=== PATIENT | male | born 1940 | race Caucasian/White ===

== ENCOUNTER 2018-12-26 09:28 | Emergency (ER) | payer MEDICARE, OTHER, SELFPAY ==
[2018-12-26 09:34] VITALS: BP 141/67; PULSE 54; RESP 16; TEMP 36.7; O2SAT 97; BMI 27.6
[2018-12-26] MEDS: TRIMETH/SULFA 160/800 (DS) TABLET 1 TAB PO (11:51)
[2018-12-26] MEDS: LIDOCAINE 2% INJ MDV 3 ML SUBCUT (11:51)
--- NOTE | 2018-12-26 12:05 | ED_ITS ---
HPI - Skin/Abscess/Foreign Bdy General Chief complaint: Skin/Abscess/Foreign Body Stated complaint: Fatty tissue is leaking on his back. Time Seen by Provider: 12/26/18 10:25 Source: patient Mode of arrival: ambulatory Limitations: no limitations History of Present Illness HPI narrative: Patient comes emergency department complaining of swelling and pain on his back in the area of a cyst/tumor. Patient states that he has had a number of these and has had to have I and D's 4 times in different areas of his back. He states usually happens toward the end of summer when it has been hot and he has been sweating a lot. Patient states that he is visiting here with his from [place]. They are staying with their son on [facility], and have been here for a couple of days. He states that has been hard for him to sleep or to be able in to enjoy other time, because of the pain and increasing swelling and tightness over his back. No fevers or chills. He states the skin is weeping a little bit but otherwise, no drainage. Related Data Home Medications Medication Instructions Recorded Confirmed triamterene-hydrochlorothiazid 1 tab PO DAILY 12/26/18 Previous Rx's Medication Instructions Recorded hydrocodone-acetaminophen 1 tab PO Q4-6H PRN #14 tab 12/26/18 sulfamethoxazole-trimethoprim 1 tab PO BID #14 tab 12/26/18 [Bactrim DS] Allergies Allergy/AdvReac Type Severity Reaction Status Date / Time No Known Drug Allergies Allergy Verified 12/26/18 09:34 Review of Systems Constitutional Constitutional: Denies chills, Denies fatigue, Denies fever(s), Denies frequent falls, Denies lethargy and Denies weakness Eyes Eyes: Denies change in vision, Denies eye discharge, Denies irritation and Denie s loss of vision ENT Ears, Nose, Mouth, and Throat: Denies change in voice, Denies dizziness, Denies neck pain, Denies sore throat and Denies throat swelling Cardiovascular Cardiovascular: Denies chest pain, Denies irregular heart rhythm, Denies lightheadedness, Denies palpitations, Denies dyspnea, Denies dyspnea on exertion and Denies orthopnea Respiratory Respiratory: Denies cough, Denies dyspnea, Denies dyspnea on exertion and Denies wheezing Gastrointestinal Gastrointestinal: Denies abdominal pain, Denies change in bowel habits, Denies diarrhea, Denies nausea and Denies vomiting Genitourinary Genitourinary: Denies hematuria, Denies flank pain, Denies urinary incontinence and Denies urinary urgency Musculoskeletal Musculoskeletal: Denies back pain, Denies muscle weakness, Denies neck pain, Denies numbness and Denies tingling Integumentary/Breasts Skin/Breast: Denies pruritus, Denies erythema, Denies rash and Denies wounds Comments: Skin lesion Neurologic Neurologic: Denies behavioral changes, Denies confusion, Denies dizziness, D enies frequent falls, Denies loss of vision, Denies numbness, Denies tingling and Denies weakness Psychiatric Psychiatric: Denies anxiety, Denies behavioral changes, Denies confusion, Denies depression, Denies homicidal ideation and Denies suicidal ideation Endocrine Endocrine: Denies fatigue, Denies flushing and Denies palpitations Hematologic/Lymphatic Hematologic/Lymphatic: Denies easy bruising Allergic/Immunologic Allergic/Immunologic: Denies urticaria, Denies throat swelling and Denies wheezing [facility] Medical History Sebaceous cyst (Acute) Surgical History No pertinent past surgical history (Acute) Social History Smoking Status: Never smoker Social History Smoking Status: Never smoker Exam Initial Vital Signs Initial Vital Signs: Vital Signs Temperature 98.0 F 12/26/18 09:34 Pulse Rate 54 L 12/26/18 09:34 Respiratory Rate 16 12/26/18 09:34 Blood Pressure 141/67 H 12/26/18 09:34 Pulse Oximetry 97 12/26/18 09:34 Const General: cooperative and well developed Nutritional Appearance: well nourished Orientation: alert, awake, oriented x3 and not confused [facility] Head: normocephalic and atraumatic Ears: external ears normal Nose: external nose normal and No nasal discharge Face and sinus: face symmetric and No dry mucous membranes Mouth: oral mucosae normal and moist mucous membranes Teeth and gingiva: dentition normal Eyes General: appearance normal, both eyes and all related structures Eyelids: eyelids normal Conjunctivae: conjunctivae normal Sclera: sclerae normal Pupils: PERRL EOM: EOM intact bilaterally Neck Neck: normal visual inspection, trachea midline, No lymphadenopathy, No midline deformity and No JVD Lymphatic: No lymphedema Chest Chest: normal inspection of the chest Resp Effort & Inspection: normal respiratory effort, able to speak in complete sentences, no respiratory distress and no use of accessory muscles Auscultation: clear to auscultation bilaterally, no rales, no rhonchi and no wheezes Cardio Rate: regular rate Rhythm: regular rhythm Heart Sounds: no click, no gallops, no murmurs and no rubs Pulses: normal peripheral pulses GI Inspection: non-distended Palpation: soft, no hepatosplenomegaly, No guarding, No pulsatile mass and No tender Auscultation: normal bowel sounds Back/Spine/Pelvis Back: No CVA tenderness Cervical Spine: cervical ROM normal and No pain with cervical ROM Thoracic/Lumbar Spine: thoracic and lumbar spine normal to inspection Other: Skin lesion see below. Skin General: No jaundice and No petechiae Other: 3 cm diameter abscess with surrounding cellulitis noted on the patient's right lower thoracic area, approximately 4 cm lateral to the spine. Induration and fluctuance is noted. No drainage. Neuro General: alert, oriented x3, gait normal and no focal motor deficits Speech: speech normal Extrem General: full ROM, no clubbing, cyanosis or edema, no pedal edema and no calf tenderness Psych Appearance: well kempt Mental Status: mental status grossly normal Attitude: cooperative Thought Content: normal and suicidality Judgment: judgment good Procedures Abscess I/D Site: back Side (if applicable): right Local Anesthetic: lidocaine 2% Amount of anesthesia used (mL): 3 Technique: incised with #11 blade Amount of fluid expressed (mL): 10 Irrigation: Yes Packing used?: iodoform Course Course Course Narrative: Abscess was I and D, as above. Patient was started on antibiotics in the emergency department, and we have discussed the patient will need to have his wound rechecked and packing changed in 2 days. Patient and are agreeable to this plan. I have given the patient prescription for antibiotics and analgesia, and we discussed the usual indications for return. Wound culture was sent. Orders Ordered: Discontinued Medications Lidocaine HCl (Xylocaine 2%) 3 ml SUBCUT NOW ONE Stop: 12/26/18 11:11 Last Admin: 12/26/18 11:51 Dose: 3 ml Documented by: GLYNN Trimethoprim/Sulfamethoxazole (Bactrim Ds) 1 tab PO NOW ONE Stop: 12/26/18 11:39 Last Admin: 12/26/18 11:51 Dose: 1 tab Documented by: GLYNN Vital Signs Vital signs: Vital Signs - 8 hr 12/26/18 09:34 Temperature 98.0 F Pulse Rate 54 L Respiratory Rate 16 Blood Pressure 141/67 H Pulse Oximetry 97 MDM - Skin/Abscess/Foreign Bdy Medical Records Attestation: I reviewed the patient's medical records. Discharge Plan Departure Patient Disposition: Home Clinical Impression: Abscess of skin or subcutaneous tissue Qualifiers: Site of cutaneous abscess: trunk Site of cutaneous abscess of trunk: back Qualified Code(s): L02.212 - Cutaneous abscess of back [any part, except buttock] Discharge Date/Time: 12/26/18 12:22 Instructions: DI for Skin Abscess Activity Restrictions/Additional Instructions: Please keep your wound clean and dry and have it rechecked in 2 days for packing change. Take your antibiotics as directed and pain medication as needed. Prescriptions: New sulfamethoxazole-trimethoprim [Bactrim DS] 800-160 mg tablet 1 tab PO BID Qty: 14 RF: 0 hydrocodone-acetaminophen 5-325 mg tablet 1 tab PO Q4-6H PRN (Reason: pain) Qty: 14 RF: 0 No Action triamterene-hydrochlorothiazid 37.5-25 mg tablet 1 tab PO DAILY RF: 0
[2018-12-26 12:18] VITALS: BP 133/76; PULSE 60; RESP 16; O2SAT 99
== END 2018-12-26 12:22 | disposition home or self-care (01) ==
PROVIDERS: Emergency Provider Emergency Medicine
DX: L02.212 Cutaneous abscess of back [any part, except buttock and flank] (principal)
CPT/HCPCS: 10060; 87070; 87205; 99282; 99283

== ENCOUNTER 2018-12-28 08:47 | Emergency (ER) | payer MEDICARE, OTHER, SELFPAY ==
[2018-12-28 08:58] VITALS: BP 152/78; PULSE 63; RESP 18; TEMP 36.6; O2SAT 95; BMI 32.1
--- NOTE | 2018-12-28 09:40 | ED_ITS ---
HPI - Recheck/Abnormal Lab/Rx General Chief Complaint: Recheck/Abnormal Lab/Rx Stated Complaint: wound care- was told to come back Time Seen by Provider: 12/28/18 09:37 Source: patient, family () and old records reviewed Mode of arrival: ambulatory Limitations: no limitations History of Present Illness HPI narrative: Patient comes in for recheck of abscess and removal of packing and for replacement. Patient states no fevers. He states that the pain has improved. He has had some mild drainage but it has been decreasing over the last 24 hours. Patient is not able to see his back but his family states that the redness is improved. He has had multiple episodes of these in the past. He is taking Bactrim daily without any side effects. Related Data Home Medications Medication Instructions Recorded Confirmed triamterene-hydrochlorothiazid 1 tab PO DAILY 12/26/18 Previous Rx's Medication Instructions Recorded hydrocodone-acetaminophen 1 tab PO Q4-6H PRN #14 tab 12/26/18 sulfamethoxazole-trimethoprim 1 tab PO BID #14 tab 12/26/18 [Bactrim DS] Allergies Allergy/AdvReac Type Severity Reaction Status Date / Time No Known Drug Allergies Allergy Verified 12/28/18 09:01 Review of Systems Review of Systems ROS Unobtainable: All systems reviewed & are unremarkable except as noted in HPI and below PFSH Medical History Sebaceous cyst (Acute) Social History Smoking Status: Never smoker Exam Narrative Exam Narrative: GENERAL: Alert and oriented x three, well-nourished, well- appearing male in no acute distress. HEENT: Head normocephalic, atraumatic, EOMI, pupils reactive, face symmetric, moist mucous membranes NECK: Supple, full range of motion BACK: Patient has packing that was removed from the right lower back, the area of prior abscess does not appear erythematous. There is some scant bloody drainage, patient is nontender to palpation there is some continued induration. Packing was replaced by myself and patient tolerated well. EXTREMITIES: Normal range of motion, no clubbing or edema. Neurovascularly intact NEUROLOGICAL: Cranial nerves II through XII grossly intact. Moving all extremities. Normal gait. SKIN: Warm, dry, no petechiae, no rashes or lesions. Initial Vital Signs Initial Vital Signs: Vital Signs Temperature 97.8 F 12/28/18 08:58 Pulse Rate 63 12/28/18 08:58 Respiratory Rate 18 12/28/18 08:58 Blood Pressure 152/78 H 12/28/18 08:58 Pulse Oximetry 95 12/28/18 08:58 Procedures Abscess I/D Site: back (repacking abscess.) Amount of fluid expressed (mL): 0 Irrigation: No Packing used?: plain Course Vital Signs Vital signs: Vital Signs - 8 hr 12/28/18 08:58 Temperature 97.8 F Pulse Rate 63 Respiratory Rate 18 Blood Pressure 152/78 H Pulse Oximetry 95 MDM - Recheck/Abnormal Lab/Rx MDM Narrative Medical decision making narrative: Patient tolerated the procedure well. He states he has not been taking any of the [place] he was prescribed. He has been tolerating antibiotics well and his abscess has been improving. We discussed he can return in 2 days for removal his packing and recheck or if he feels comfortable he may remove it in 2 days does not have to return if his symptoms are continuing to improve. Discharge Plan Departure Patient Disposition: Home Clinical Impression: Encounter for wound re-check Discharge Date/Time: 12/28/18 10:05 Instructions: DI for Incision and Drainage of a Skin Abscess Activity Restrictions/Additional Instructions: You may remove the packing in 2 days or return to the emergency department for removal. If packing falls out early do not replace it. Wound Care: Keep wound(s) clean and dry. Wash daily with soap and water only. Do not use over the counter products (alcohol or peroxide)on the wounds unless instructed by a physician. If wound condition worsens (increased/expanding redness, developing fluid blisters, or worsening pain), either contact your doctor for an urgent re- assessment , or return to the Emergency Department. Return if fever greater than 100.4 Fahrenheit, increased swelling, increasing pain or worsening symptoms such as increased discharge or spreading redness. You may use warm compresses 3 times daily for 20 minutes to the affected area. . Prescriptions: No Action triamterene-hydrochlorothiazid 37.5-25 mg tablet 1 tab PO DAILY RF: 0 sulfamethoxazole-trimethoprim [Bactrim DS] 800-160 mg tablet 1 tab PO BID Qty: 14 RF: 0 hydrocodone-acetaminophen 5-325 mg tablet 1 tab PO Q4-6H PRN (Reason: pain) Qty: 14 RF: 0
[2018-12-28 10:06] VITALS: BP 131/78; PULSE 65; RESP 18; O2SAT 98
== END 2018-12-28 10:05 | disposition home or self-care (01) ==
PROVIDERS: Emergency Provider Emergency Medicine
DX: Z48.00 Encounter for change or removal of nonsurgical wound dressing (principal)
CPT/HCPCS: 99282